=== PATIENT | female | born 1970 | race Caucasian/White ===

== ENCOUNTER 2018-04-27 14:43 | Emergency (ER) | payer SELFPAY ==
[~2018-04-27] VITALS: Ht 162.6 cm; Wt 68.0 kg
[2018-04-27 14:54] VITALS: BP_SYST 135
--- NOTE | 2018-04-27 15:10 | NUR ---
CALLED BY NOLA PICHARDO FOR EVALUATION, UNABLE TO FIND PT IN WAITING ROOM
--- NOTE | 2018-04-27 15:15 | NUR ---
CALLED FOR A SECOND TIME BY NOLA PICHARDO, ATTEMPTED TO FIND PT OUTSIDE AND IN WAITING ROOM, UNABLE TO LOCATE PT.
--- NOTE | 2018-04-27 15:24 | NUR ---
CALLED FOR A THIRD TIME BY NOLA PICHARDO FOR EVALUATION, UNABLE TO LOCATE PT. PT IS A LEFT WITHOUT BEING SEEN.
== END 2018-04-27 15:25 | disposition left against medical advice (07) ==
LOC: SED 14:43
DX: M25.561 Pain in right knee (principal); Z53.21 Procedure and treatment not carried out due to patient leaving prior to being seen by health care provider